=== PATIENT | female | born 1990 | race Caucasian/White ===

== ENCOUNTER → 2016-05-01 | Outpatient (CLI) | payer BC ==
--- NOTE | 2016-05-04 05:33 | SLEEPCENT ---
DATE OF PROCEDURE: 05/01/2016 ORDERED BY: DARYN Rodriguez Nocturnal polysomnography was performed for the titration of pressure therapy in this patient identified with obstructive sleep apnea syndrome confirmed by home testing revealing a respiratory event index of 89. For testing, a ResMed AirFit F10 full face mask was used of medium size. 4 cm of water pressure were applied to the circuit and the lights were extinguished. 6 hours and 43 minutes of data were reviewed. There were 354 minutes of sleep identified. Sleep latency was short at 8.5 minutes. Rapid eye movement (REM) latency was short at 45 minutes. Sleep architecture showed evidence of REM rebound. There were 4 REM periods appreciated. Overall sleep efficiency was 89%. The patient's EKG showed a sinus rhythm with an average heart rate of 76 beats per minute. EEG showed mild artifactual changes. No focal events of normal waveforms for awake and sleep. Respiratory events were fully palliated with CPAP at a pressure of 8. Mild snoring was noted despite the mask. A few limb movements were noted and oxygen saturations remained 90% plus. IMPRESSION: Obstructive sleep apnea syndrome (G47.33). RECOMMENDATION: Nightly use of pressure therapy 8 cm of water.
== END ==
LOC: M SLEEP 19:45
PROVIDERS: ATTEND Nurse Practitioner Adult Health
DX: G47.33 Obstructive sleep apnea (adult) (pediatric) (principal)

== ENCOUNTER → 2017-03-25 | Outpatient (CLI) | payer BC | LOC: M LAB 22:06 | PROVIDERS: ATTEND Physician Assistant | DX: R19.7 Diarrhea, unspecified (principal) ==

== ENCOUNTER → 2019-10-22 | Outpatient (CLI) | payer BC | LOC: M LABSMTC 12:57 | PROVIDERS: ATTEND Family Medicine | DX: Z11.59 Encounter for screening for other viral diseases (principal) | CPT/HCPCS: C9803; U0002 ==

== ENCOUNTER → 2020-02-29 | Outpatient (CLI) | payer BC | LOC: M LABSMTC 12:02 | PROVIDERS: ATTEND Pediatrics | DX: Z20.828 Contact with and (suspected) exposure to other viral communicable diseases (principal) ==

== ENCOUNTER → 2020-05-19 | Outpatient (REF) | payer BC | LOC: M SFHCWAGY 10:02 | PROVIDERS: ATTEND Nurse Practitioner Women's Health | DX: Z12.4 Encounter for screening for malignant neoplasm of cervix (principal); Z01.419 Encounter for gynecological examination (general) (routine) without abnormal findings ==

== ENCOUNTER → 2020-06-18 | Outpatient (CLI) | payer BC ==
[2020-06-18 11:32] LABS: BASO % 0.4 % (0.0-1.0); EOS # 0.1 10^3/uL (0.0-0.5); EOS % 1.6 % (0.0-3.0); HEMATOCRIT 43.7 % (36.0-47.0); HEMOGLOBIN 14.2 g/dl (12.0-15.5); LYMPH # 2.5 10^3/uL (1.5-5.0); LYMPH % 29.1 % (24.0-44.0); MEAN CORPUSCULAR HEMOGLOBIN 32.1 pg (27.0-33.0); MEAN CORPUSCULAR HGB CONC 32.5 g/dl (32.0-36.5); MEAN CORPUSCULAR VOLUME 98.9 fl (80.0-96.0); MONO # 0.6 10^3/uL (0.0-0.8); MONO % 7.1 % (2.0-8.0); NEUTROPHILS # 5.2 10^3/uL (1.5-8.5); NEUTROPHILS % 61.3 % (36.0-66.0); PLATELET COUNT, AUTOMATED 295 10^3/uL (150-450); RED BLOOD COUNT 4.42 10^6/uL (4.00-5.40); WHITE BLOOD COUNT 8.5 10^3/uL (4.0-10.0)
[2020-06-18 12:06] LABS: ALBUMIN 3.8 GM/DL (3.2-5.2); ALT/SGPT 36 U/L (12-78); BILIRUBIN,TOTAL 0.4 MG/DL (0.2-1.0); BLOOD UREA NITROGEN 7 MG/DL (7-18); CALCIUM LEVEL 9.1 MG/DL (8.5-10.1); CARBON DIOXIDE LEVEL 28 MEQ/L (21-32); CHLORIDE LEVEL 105 MEQ/L (98-107); CREATININE FOR GFR 0.83 MG/DL (0.55-1.30); FREE T4 0.93 NG/DL (0.76-1.46); GLOMERULAR FILTRATION RATE > 60.0 (>60); GLUCOSE, FASTING 133 MG/DL (70-100); POTASSIUM SERUM 4.4 MEQ/L (3.5-5.1); SODIUM LEVEL 137 MEQ/L (136-145); TOTAL PROTEIN 7.4 GM/DL (6.4-8.2)
[2020-06-18 12:27] LABS: HEMOGLOBIN A1c 6.6 %
== END ==
LOC: M LAB 10:38
PROVIDERS: ATTEND Physician Assistant
DX: G47.33 Obstructive sleep apnea (adult) (pediatric) (principal); E66.09 Other obesity due to excess calories

== ENCOUNTER 2020-07-23 20:26 | Emergency (ER) | payer OTHER, BC ==
[2020-07-23 20:30] VITALS: BP 181/101
[2020-07-23] MEDS ORDERED: CLINDAMYCIN 150MG CAPSULE PO ONE (20:50)
[2020-07-23] MEDS ORDERED: FLUCONAZOLE 50MG TABLET PO ONE (20:50)
[2020-07-23] MEDS ORDERED: BACTRIM 160MG/800MG DS TAB PO ONE (20:50)
[2020-07-23] MEDS ORDERED: CLIN150C15 PO (20:53)
[2020-07-23] MEDS ORDERED: CLEO300C2 PO (20:53)
[2020-07-23] MEDS ORDERED: DIFL150T PO (20:53)
[2020-07-23] MEDS ORDERED: BACT800T5 PO (20:53)
== END 2020-07-23 21:32 | disposition home or self-care (01) ==
LOC: M ED 20:26
DX: S51.851A Open bite of right forearm, initial encounter (principal); Y04.1XXA Assault by human bite, initial encounter; Y92.9 Unspecified place or not applicable; Y93.9 Activity, unspecified; Y99.0 Civilian activity done for income or pay; Z88.0 Allergy status to penicillin; F17.200 Nicotine dependence, unspecified, uncomplicated

== ENCOUNTER → 2020-10-12 | Outpatient (CLI) | payer BC ==
[~2020-10-12] MED LIST: BACT800T5 PO; CLEO300C2 PO; CLIN150C15 PO; DIFL150T PO
[2020-10-12 07:47] LABS: BLOOD UREA NITROGEN 9 MG/DL (7-18); CALCIUM LEVEL 8.7 MG/DL (8.5-10.1); CARBON DIOXIDE LEVEL 27 MEQ/L (21-32); CHLORIDE LEVEL 105 MEQ/L (98-107); CREATININE FOR GFR 0.75 MG/DL (0.55-1.30); GLOMERULAR FILTRATION RATE > 60.0 (>60); GLUCOSE, FASTING 103 MG/DL (70-100); POTASSIUM SERUM 3.9 MEQ/L (3.5-5.1); SODIUM LEVEL 138 MEQ/L (136-145)
[2020-10-12 07:48] LABS: HEMOGLOBIN A1c 5.2 %
== END ==
LOC: M LAB 07:06
PROVIDERS: ATTEND Physician Assistant
DX: E11.9 Type 2 diabetes mellitus without complications (principal)